=== PATIENT | male | born 1995 | race Caucasian/White ===

== ENCOUNTER → 2016-08-05 | Outpatient (CLI) | payer OTHER ==
[~2016-08-05] MED LIST: IMITREX PO; LISI40TA PO
== END | disposition home or self-care (01) ==
LOC: C.RDSM 16:52
PROVIDERS: ATTEND Family Medicine Sports Medicine
DX: M25.571 Pain in right ankle and joints of right foot (principal)

== ENCOUNTER → 2016-10-04 | Outpatient (CLI) | payer OTHER ==
[~2016-10-04] MED LIST changes: +MIDAZOLAM HCL 1 MG/ML 2ML VIAL ONE
--- NOTE | 2016-10-04 10:30 | DIAGNOSTIC IMAGING REPORT ---
LEFT KNEE 2 VIEWS CLINICAL HISTORY: Left knee pain and injury. Suspected ACL tear. FINDINGS: AP and crosstable lateral views of the left knee are obtained. No prior studies are available for comparison at the time of dictation. The skeletal structures are well mineralized. No fracture is seen. The joint spaces of the knee are well-maintained. There is no large joint effusion. Prepatellar soft tissue edema is noted. IMPRESSION: Prepatellar soft tissue swelling. No acute bony abnormality is seen. Electronically signed by: Hernando Thornton M.D. 10/04/2016 10:29 AM Dictated Date/Time: 10/04/2016 10:27 AM
== END | disposition home or self-care (01) ==
LOC: C.RAD 10:16
PROVIDERS: ATTEND Physical Medicine & Rehabilitation Sports Medicine
DX: S83.512A Sprain of anterior cruciate ligament of left knee, initial encounter (principal); X58.XXXA Exposure to other specified factors, initial encounter

== ENCOUNTER → 2016-10-09 | Outpatient (CLI) | payer OTHER ==
[~2016-10-09] MED LIST changes: -MIDAZOLAM HCL 1 MG/ML 2ML VIAL ONE
--- NOTE | 2016-10-09 12:07 | DIAGNOSTIC IMAGING REPORT ---
MRI left knee LEFT LOWER EXT JOINT WITHOUT CLINICAL HISTORY: KNEE PAIN pain TECHNIQUE: Multiaxial MRI acquisition COMPARISON STUDY: None FINDINGS: Signal characteristics the osseous structures demonstrate a 12 x 13 mm slight impaction and/or ping pong type deformity of the central lateral femoral condyle. There is proximal thigh 1.5 cm depression. There is moderate surrounding reactive bone marrow edematous change. The overlying articular services does not appear to be disrupted. No loose fragments are identified. There is a tear of the anterior cruciate ligament. Posterior cruciate ligament is intact. Evaluation of the menisci shows both medial as well as lateral meniscus to be unremarkable in overall signal character and configuration. Collateral ligaments are intact. There is a small short segment tear of the medial patellar articulating surface best seen transaxial image 10. There is a small synechiae of the suprapatellar bursa. A very small joint effusion is noted. The patellar retinaculum appear intact. IMPRESSION: 1. Tear anterior cruciate ligament. 2. Small cortical impaction central lateral femoral condyle with moderate surrounding bone marrow edema 3. The overlying articular surface is intact 4. Small focal tear or laceration medial patellar articulating surface Electronically signed by: Walter Zazueta M.D. 10/09/2016 12:06 PM Dictated Date/Time: 10/09/2016 11:58 AM
== END | disposition home or self-care (01) ==
LOC: C.MRI 10:53
PROVIDERS: ATTEND Physical Medicine & Rehabilitation Sports Medicine
DX: M25.569 Pain in unspecified knee (principal)

== ENCOUNTER → 2016-10-23 | Day surgery (SDC) | payer OTHER ==
[2016-10-13 10:22] VITALS: Ht 197.5 cm; Wt 88.6 kg
--- NOTE | 2016-10-21 09:31 | PAT Medication Instructions ---
Service Date Oct 21, 2016. Current Home Medication List Lisinopril (Zestril), 40 MG PO HS [Imitrex], 1 TAB PO UD PRN for Migraine Medication Instructions For Your Scheduled Surgery - Do Not take evening prior to surgery: Lisinopril (Zestril), 40 MG PO HS - Take the following medications the morning of surgery with a sip of water OTHERWISE NOTHING TO EAT OR DRINK AFTER MIDNIGHT: [Imitrex], 1 TAB PO UD PRN for Migraine If you have any questions please call us at [phone] or [phone] or [phone]
[~2016-10-23] VITALS: Ht 197.5 cm; Wt 88.6 kg
[~2016-10-23] MED LIST changes: +ATROPINE SULFATE 0.1 MG/ML 5ML SYR IV PRN; +CEFAZOLIN 2000 MG/60 ML D5W IV SCH; +CEFTRIAXONE SOD 1 GM VIAL IV ONE; +CEFTRIAXONE SOD 1 GM VIAL ONE; +DEXAMETHASONE SOD INJ 4 MG/ML VIAL ONE; +EpHEDrine SULFATE INJ 50 MG/ML AMP IV PRN; +FENTANYL CITRATE INJ 50 MCG/1 ML 2 ML VIAL ONE; +HYDROmorphone INJ 1 MG/ML SYR ONE; +LACTATED RINGER'S 1000ML 1,000 ML IV SCH; +LIDOCAINE HCL 1% MPF 2 ML VIAL ONE; +LIDOCAINE HCL 2% 2 ML VIAL (20MG/ML) ONE; +MIDAZOLAM HCL 1 MG/ML 2ML VIAL ONE; +MoRPHine SULFATE 4 MG/ML 1 ML CARP\\VIAL IV PRN; +ONDANSETRON INJ 2 MG/ML 2 ML VIAL IV PRN; +ONDANSETRON INJ 2 MG/ML 2 ML VIAL ONE; +OXYCODONE/ACETAMINOPHEN 5-325 TAB PO STA; +PHENYLEPHRINE 100MCG/ML 5ML SYR IV PRN; +PROPOFOL IV EMULSION 10 MG/ML 20 ML VIAL IV ONE; +ROPIVACAINE 0.5% 5 MG/ML 30 ML VIAL ONE; +SODIUM CHLORIDE 0.9% 1000ML 1,000 ML IV SCH
--- NOTE | 2016-10-23 10:54 | History & Physical Bridge Note ---
H&P Re-Evaluation Bridge Note: I have examined the patient, reviewed the History & Physical and in the interval since the performance of the History & Physical I have noted the following changes of clinical significance: No changes noted
--- NOTE | 2016-10-23 10:55 | Discharge Instructions ---
Discharge Instructions Date of Service Oct 23, 2016. Visit Reason for Visit: Left Knee Acl Tear, Poss Meniscus Tear, Bone Contu Discharge Discharge Diagnosis / Problem: same Discharge Goals Goal(s): Improve function Medications Stopped Medications Name(s): na Restart Stopped Medication(s): use scripts as directed Activity Recommendations Activity Limitations: as noted below Lifting Limitations: until after follow-up appointment Exercise/Sports Limitations: until after follow-up appointment May Resume Sexual Activity: when tolerated Shower/Bathe: keep incision dry Weightbearing Status: Left weightbearing (as tolerated) Anesthesia . Post Anesthesia Instructions: If you have had General Anesthesia or IV Sedation: * Do not drive today. * Resume driving when surgeon permits. * Do not make important decisions or sign legal documents today. * Call surgeon for: 1. Temperature elevations greater than 101 degrees F. 2. Uncontrollable pain. 3. Excessive bleeding. 4. Persistent nausea and vomiting. 5. Medication intolerance (nausea, vomiting or rash). * For nausea and vomiting use only clear liquids such as: tea, soda, bouillon until nausea subsides, then gradually increase diet as tolerated. * If you have any concerns or questions, call your surgeon's office. If physician is unavailable and it is an emergency, call 911 or go to the nearest emergency room. . Instructions / Follow-Up Instructions / Follow-Up The following instructions are a useful guide to questions you may have after your Anterior Cruciate Ligament Reconstruction surgery. If you have any questions contact the office at . ACTIVITY RECOMMENDATIONS: * Heavy manual labor is not permitted until 4-6 months after surgery. * Sports are not permitted until 6-9 months after surgery. * Return to activity is individualized. * DRIVING: Driving is not permitted until 3-4 weeks after surgery at a minimum. Please ask your doctor when it is safe to resume driving. If you have an automatic vehicle and your left leg has been operated on, then you may begin driving as soon as you are comfortable and can drive safely. * BATHING: You may shower or sponge-bathe immediately after surgery. The dressing will need to be covered with a plastic bag or plastic wrap until the dressing is changed on the fourth or fifth day after surgery. Once the dressing has been changed on the fourth or fifth day after surgery, you may shower and get the incision wet. * Wash with regular soap and water. * Do not bathe (submerge the incision), soak, swim or use a hot tub until the incision is completely healed over with normal skin and the doctor has given the OK to proceed. * There is no need to apply any ointments, powders or salves to your incision. * Do not apply alcohol or hydrogen peroxide directly to the incision. Diluted peroxide (50:50 mixture with sterile saline) may be used to clean dried blood from around the incision area. WORK/SCHOOL: * You may return to sedentary work or school when you are feeling comfortable. This is usually 3-7 days after surgery. * Expect increased discomfort with increased activity. Continue to elevate and ice the leg as much as possible. DIET: * Resume previous diet. MEDICATIONS: * You will have a prescription for pain medication and an anti-inflammatory medication after surgery. Use the pain pills for severe pain and the anti-inflammatory for less severe pain. * Once the pain pills have run out, try to use the anti-inflammatory. If this is not effective then contact the office for assistance. * The pain medication may cause nausea, constipation and sleepiness. You should see how they affect you before driving or similar activity. * The anti-inflammatory may cause stomach upset and bleeding. If this occurs, let your doctor know immediately . * Some patients may need blood clot prevention. This can be done with either a pill or a simple shot. Your doctor will advise you on when to begin these medications and how to take them. * Do not take aspirin or other anti-inflammatory products (i.e. Advil or Aleve ) if taking blood thinner medication. * Take a stool softener like Colace or a stimulant like Senokot to prevent constipation. SPECIAL CARE INSTRUCTIONS: The following instructions are a useful guide to questions you may have after your surgery. If you have any questions contact the office at . ICE: * You have the option of an ice cooler, gel packs or ice bags. * If you have an ice cooler, refer to the instructions for that device. * If you do not have an ice cooler, then you will need to use ice bags or gel packs. * Do not apply ice directly to the skin. * Use a thin dressing or stockinet between the skin and ice bag. * Apply ice for 20-30 minutes and repeat every 2-4 hours. This is especially important for the first 7-10 days after surgery. * Once the pain improves, use ice as needed. * The ice cooler can be used continuously. ELEVATION: * Keep your leg elevated at or above the level of your heart as much as possible. * Expect some increased discomfort and swelling if you are standing for any length of time. * When lying down, avoid placing anything under your knee. Rather, prop your leg up by placing several pillows under your heel or calf. DRESSING: * Your dressing will be changed at your first therapy appointment approximately 4-5 days after surgery. * Band-Aids, tape strips or gauze may be applied. You may then change your dressing daily. * Always wash your hands prior to touching the incision area. * Reapply dressing followed by the Rakan wrap or Tubi-final application reviewer stockinet, ice cooling pad and then the brace. * Once the stitches are removed, you may leave the wound open to air or cover with an Rakan Bandage or Tubi-final application reviewer stockinet. * If you have been given a white elastic stocking (BARBARA hose), wear as much as possible for the first 1-3 weeks depending on swelling. * Expect some bloody drainage for the first few days after surgery. * Leave the tape strips in place for 5-7 days. * Band-Aids and gauze may be changed daily. CRUTCHES: * You will need to use crutches after surgery. * Until your first doctor's appointment, you must use your crutches at all times when walking and should put no more than 50% of your normal weight on the surgical leg. * After your first doctor's appointment, you may gradually progress to full weight bearing and discontinue crutches as tolerated under the guidance of your therapist. * If you have had a microfracture procedure done, you may be advised to be non- weight bearing for up to 6 weeks. BRACE: * After surgery, you will be placed into a range of motion brace locked with your leg straight. This brace is to be worn at all times when walking (even with the crutches) and sleeping until your first doctors appointment. * The brace may be removed for therapy. * After your first therapy appointment, your therapist will open the brace to allow bending of the knee once your muscles are working better. * Until your first doctor's appointment, you should sleep with your brace locked with your knee fully straight. * If you have chosen to use a functional ACL brace then this brace will be supplied about 2-3 months after your surgery. During that time, you will attend therapy 2- 3 times per week. You will also need to do daily exercises for range of motion and strength as instructed. PROBLEMS/QUESTIONS: * If you have any problems such as severe pain, numbness, tingling or high fevers or if you have any questions, please contact the office at [phone]. * It is not uncommon to have some numbness and tingling after the surgery especially if you have had a nerve block done. This should gradually improve over the first 1- 2 days. If this persists longer or worsens then contact the office. FOLLOW UP VISIT: * If not already scheduled, please call the office at to schedule follow-up appointments for approximately 10 days and one month after surgery followed by monthly appointments thereafter. Diet Recommendations Recommended Home Diet: resume previous diet Procedures Procedures Performed: see op note Pending Studies Studies pending at discharge: no Medical Emergencies . Who to Call and When: Medical Emergencies: If at any time you feel your situation is an emergency, please call 911 immediately. . Non-Emergent Contact Non-Emergency issues call your: Specialist Call Non-Emergent contact if: temperature is above 101.5 . . "Provider Documentation" section prepared by Sreekanth Ford.
--- NOTE | 2016-10-23 13:51 | [facility] Post Operative Brief Note ---
Immediate Operative Summary Operative Date Oct 23, 2016. Pre-Operative Diagnosis Left knee anterior cruciate ligament tear Post-Operative Diagnosis Same as preop Procedure(s) Performed EUA, Chondroplasty Patella, Left Knee Arthroscopic Anterior Cruciate Ligament Reconstruction With Patellar Tendon Autograft. Surgeon Dr. Ford [employer] Intern Surgeon(s) Guillermo Myers PA-C Estimated Blood Loss 25 cc Findings acl tear Fluids (cc crystalloids) 1000cc Specimens None Drains none Anesthesia LMA/block Complication(s) None Disposition Recovery Room / PACU
--- NOTE | 2016-10-23 14:18 | OPERATIVE REPORT ---
DATE OF OPERATION: 10/23/2016 PREOPERATIVE DIAGNOSIS: Subacute anterior cruciate ligament tear, left knee. 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 OPERATION PERFORMED: 1. Exam under anesthesia. 2. Diagnostic arthroscopy. 3. Chondroplasty medial facet of patella. 4. Endoscopic ACL reconstruction using central one-third patellar tendon autograft. SURGEON: Dr. Ford. PASS WORKER: Guillermo Myers PA-C. No resident or fellow available. 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 At this point in time wants to proceed with surgical treatment. Physical exam, x-ray and MRI scan consistent with ACL tear. There was also an area noted on the patella of articular disease medially. OPERATION: The patient appropriately identified, site verified, consent verified, 2 grams of Ancef confirmed as being given. The left lower extremity was examined and compared to the right lower extremity revealing ACL positive Irene test, ACL pivot glide, negative collateral or posterolateral corner, posteromedial portal. Findings PCL are symmetric. Lelli test was positive on the left. The leg was then prepped and draped in usual routine fashion. Tourniquet inflated to 275 mmHg after exsanguination of limb with a rubber Esmarch bandage for a total of 58 minutes. An anterior approach to patellar tendon was then made. Appropriate dissection carried out. Peritenon opened and the patellar tendon harvested 10 mm wide with bone blocks being 20 x 10 x 5 off the patella and 30 x 10 x 5 off the tibia. It was then tagged with #2 Ethibond sutures on the tibial block after it was trimmed to fit through an 11 mm tunnel and with a TightRope on the femur after it was trimmed to fit through a 10 mm block. This was then placed in a sterile specimen container. The leg was then scoped through an inframedial and infralateral portal made at the harvest site. Inspection of the joint revealed some articular disease of the medial patellar facet, which was resected and debrided to a stable base. There was no exposed bone. The medial gutter and lateral gutters were clean. The lateral compartment had no articular disease that was visible and the lateral meniscus was normal. The stump of the ACL was actually in continuity but stretched. It was hemorrhaged throughout it. It was shaved very easily and had reattached itself to the PCL. It was not at the normal attachment of the femur. Once this was debrided, one could see the stump of the ACL that was left attached to the femur at its anatomic origin. This was preserved. A limited notchplasty performed. The medial compartment had healthy articular surfaces on the tibia and the femur and the medial meniscus was normal. Some minor dissection of the fat pad was performed to improve visibility. The tibial guide was then seated and a 55 mm tunnel drilled appropriate position right in the middle of the footprint. The 11 mm tunnel made appropriately debrided and chamfered. The transtibial guide was placed. The tibial tunnel was low and horizontal allowing low position on the posterior aspect of the femoral attachment of the ACL. The socket was made 25 mm in depth. All bone debris removed. Once the knee was completely thoroughly irrigated and all bone debris removed the graft was then passed using the shuttle technique for the Arthrex TightRope and then the cortical suspension device button deployed and grabbed very well. It was then tensioned manually and noted not to move and then the graft was then tensioned with a TightRope into the socket and docked nicely. The graft was fixed well on the femur. It was then fixed on the tibia due to its patellar tendon length being a tall earth burner we decided to cut a trough and not risk any fixation with screws and then the graft docked into a trough and secured with two 8 mm Arthrex timur. The graft fixation was excellent. The knee was then examined revealing stable Irene, pivot shift, and anterior drawer test. The wounds were then irrigated, bone trimming was used to graft the patellar bone harvest site, peritenon closed over the patellar tendon and over the patellar surface incarcerating the graft into its bed. The peritenon was quite robust and closed nicely. The wound was then irrigated one final time and the fascial layer over the tibial tunnel closed with 0 Vicryl and then the wound closed with subcutaneous 2-0 plain and a running subcuticular 2-0 Prolene stitch. Appropriate soft tissue dressing applied. The patient transferred to recovery room in satisfactory condition having tolerated the procedure well. ESTIMATED BLOOD LOSS: 25 mL. CRYSTALLOID: 1000 mL. DVT prophylaxis with activity and aspirin. I attest to the content of the Intraoperative Record and any orders documented therein. Any exceptio ns are noted below.
[2016-10-23] MEDS: HYDROmorphone INJ 2 MG/ML SYR/VIAL IV PRN ×2 (14:28→14:44)
--- NOTE | 2016-10-23 15:12 | Anesthesia Progress Nt - [facility] ---
Anesthesia Post Op Note Date & Time Oct 23, 2016 at 15:12 Vital Signs Pain Intensity: 4 Vital Signs Past 12 Hours Date Time Temp Pulse Resp B/P Pulse Ox O2 Delivery O2 Flow Rate FiO2 10/23/16 15:00 147/87 10/23/16 14:58 75 15 10/23/16 14:58 76 15 98 10/23/16 14:55 161/74 10/23/16 14:53 67 13 10/23/16 14:53 66 13 98 10/23/16 14:52 67 14 10/23/16 14:52 63 14 98 10/23/16 14:50 168/80 10/23/16 14:47 69 12 10/23/16 14:47 69 12 100 10/23/16 14:46 73 22 100 10/23/16 14:46 74 22 10/23/16 14:45 172/79 10/23/16 14:41 71 14 100 10/23/16 14:41 70 14 10/23/16 14:40 165/77 10/23/16 14:36 62 0 100 10/23/16 14:36 62 0 10/23/16 14:35 179/75 10/23/16 14:31 71 12 10/23/16 14:31 70 12 100 10/23/16 14:30 166/81 10/23/16 14:26 74 10 10/23/16 14:26 74 10 100 10/23/16 14:25 173/75 10/23/16 14:21 71 16 100 10/23/16 14:21 72 16 10/23/16 14:20 182/85 10/23/16 14:17 72 11 10/23/16 14:17 70 11 100 10/23/16 14:15 145/62 10/23/16 14:12 74 14 10/23/16 14:12 71 14 100 10/23/16 14:10 169/65 10/23/16 14:08 159/81 10/23/16 14:08 36.5 80 18 159/81 98 Mask 8 10/23/16 14:07 78 100 10/23/16 14:07 78 10/23/16 12:12 77 14 99 10/23/16 12:12 74 14 10/23/16 12:11 75 15 10/23/16 12:11 74 15 98 10/23/16 12:10 142/67 10/23/16 12:06 66 14 98 10/23/16 12:06 69 14 10/23/16 12:05 133/67 10/23/16 12:02 68 20 10/23/16 12:02 70 20 98 10/23/16 12:00 148/71 10/23/16 11:57 80 9 10/23/16 11:57 77 9 99 10/23/16 11:55 147/77 10/23/16 11:52 75 19 10/23/16 11:52 74 19 98 10/23/16 11:50 157/80 10/23/16 11:47 71 16 10/23/16 11:47 69 16 98 10/23/16 11:45 158/77 10/23/16 10:49 36.6 76 16 133/77 98 Room Air Notes Mental Status: alert / awake / arousable, participated in evaluation Pt Amnestic to Procedure: Yes Nausea / Vomiting: adequately controlled Pain: adequately controlled Airway Patency, RR, SpO2: stable & adequate BP & HR: stable & adequate Hydration State: stable & adequate Anesthetic Complications: no major complications apparent
[2016-10-23 15:19] VITALS: TEMP 36.8
--- NOTE | 2016-10-23 15:19 | OPERATIVE REPORT ---
DATE OF OPERATION: 10/23/2016 PREOPERATIVE DIAGNOSIS: Left knee anterior cruciate ligament tear with possible lateral meniscal tear. POSTOPERATIVE DIAGNOSIS: Left knee anterior cruciate ligament tear with patellar chondral injury. PROCEDURES: Left knee arthroscopy, ACL reconstruction using patellar tendon autograft, and chondroplasty of the patella. SURGEON: Dr. Ford. SORORITY MOTHER: Guillermo Myers PA-C. 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 He had left knee instability. The patient elected to proceed with surgical intervention after being educated about potential risks and outcomes. Preoperative MRI was obtained. OPERATION: The patient was administered a regional block and then taken to the operating room where he was given a general anesthetic. He was prepped and draped in the usual sterile fashion. Please see Dr. Ford's operative report for specifics of the procedure. I was present for the entire case from initial patient positioning through final wound closure. Assistance was provided in arthroscopy, tissue retraction, hemostasis, graft harvest, graft placement, hardware placement, and final wound closure. The patient was taken to the recovery room in satisfactory condition. I attest to the content of the Intraoperative Record and any orders documented therein. Any exceptio ns are noted below.
[2016-10-23 15:55] VITALS: BP 134/74; PULSE 85; O2SAT 98
== END | disposition home or self-care (01) ==
LOC: X.SURG 10:28
PROVIDERS: ATTEND Physical Medicine & Rehabilitation Sports Medicine
DX: S83.502A Sprain of unspecified cruciate ligament of left knee, initial encounter (principal); X58.XXXA Exposure to other specified factors, initial encounter; Q23.1 Congenital insufficiency of aortic valve; M24.10 Other articular cartilage disorders, unspecified site; Q24.9 Congenital malformation of heart, unspecified; I10 Essential (primary) hypertension; Y93.68 Activity, volleyball (beach) (court); Y92.39 Other specified sports and athletic area as the place of occurrence of the external cause; Y99.8 Other external cause status

== ENCOUNTER → 2016-11-24 | Outpatient (CLI) | payer OTHER ==
[~2016-11-24] MED LIST changes: -ATROPINE SULFATE 0.1 MG/ML 5ML SYR IV PRN; -CEFAZOLIN 2000 MG/60 ML D5W IV SCH; -CEFTRIAXONE SOD 1 GM VIAL IV ONE; -CEFTRIAXONE SOD 1 GM VIAL ONE; -DEXAMETHASONE SOD INJ 4 MG/ML VIAL ONE; -EpHEDrine SULFATE INJ 50 MG/ML AMP IV PRN; -FENTANYL CITRATE INJ 50 MCG/1 ML 2 ML VIAL ONE; -HYDROmorphone INJ 1 MG/ML SYR ONE; -LACTATED RINGER'S 1000ML 1,000 ML IV SCH; -LIDOCAINE HCL 1% MPF 2 ML VIAL ONE; -LIDOCAINE HCL 2% 2 ML VIAL (20MG/ML) ONE; -MIDAZOLAM HCL 1 MG/ML 2ML VIAL ONE; -MoRPHine SULFATE 4 MG/ML 1 ML CARP\\VIAL IV PRN; -ONDANSETRON INJ 2 MG/ML 2 ML VIAL IV PRN; -ONDANSETRON INJ 2 MG/ML 2 ML VIAL ONE; -OXYCODONE/ACETAMINOPHEN 5-325 TAB PO STA; -PHENYLEPHRINE 100MCG/ML 5ML SYR IV PRN; -PROPOFOL IV EMULSION 10 MG/ML 20 ML VIAL IV ONE; -ROPIVACAINE 0.5% 5 MG/ML 30 ML VIAL ONE; -SODIUM CHLORIDE 0.9% 1000ML 1,000 ML IV SCH
== END | disposition home or self-care (01) ==
LOC: C.RDSM 14:17
PROVIDERS: ATTEND Physical Medicine & Rehabilitation Sports Medicine
DX: S83.512D Sprain of anterior cruciate ligament of left knee, subsequent encounter (principal); X58.XXXD Exposure to other specified factors, subsequent encounter